=== PATIENT | male | born 1980 | race Caucasian/White ===

== ENCOUNTER 2018-03-28 19:04 | Observation (INO) | payer OTHER ==
[~2018-03-28] VITALS: Ht 182.9 cm; Wt 85.3 kg
[2018-03-28 19:08] VITALS: BP 132/66
[2018-03-28 19:38] LABS: ABSOLUTE BASOPHILS 0.1 thou/uL (0.0-0.2); ABSOLUTE EOSINOPHILS 0.1 thou/uL (0.0-0.7); ABSOLUTE LYMPHOCYTES 1.8 thou/uL (0.8-5.3); ABSOLUTE MONOCYTES 0.5 thou/uL (0.0-1.2); ABSOLUTE NEUTROPHILS 4.9 thou/uL (1.6-8.1); BASOPHILS 0.8 %; EOSINOPHILS 0.8 %; HEMATOCRIT 37.9 % (42.0-52.0); HEMOGLOBIN 13.2 gm/dL (14.0-18.0); LYMPHOCYTES 24.5 %; MCH 29.4 pg (26.0-34.0); MCHC 34.9 g/dL (28.0-37.0); MONOCYTES 6.8 %; MPV 7.9 fl. (7.2-11.1); NUCLEATED RBCS 0 /100WBC; PLATELET COUNT* 234 thou/uL (150-400); POLYS 67.1 %; RBC 4.51 mil/uL (4.50-6.00); RDW-CV 12.8 % (10.5-14.5); WBC 7.4 thou/uL (4.0-11.0)
[2018-03-28 19:47] LABS: CALCIUM 8.4 mg/dL (8.5-10.1); CREATININE 0.8 mg/dL (0.6-1.3); POTASSIUM 3.4 mmol/L (3.5-5.1)
[2018-03-28 19:51] LABS: ALBUMIN 3.5 g/dL (3.4-5.0); TOTAL PROTEIN 6.5 g/dL (6.4-8.2)
[2018-03-28] MEDS ORDERED: AMOXICILLIN 50500 MG PO (20:43)
[2018-03-28] MEDS ORDERED: IBUPROFEN 800800 M1 PO ×2 (20:44→20:45)
[2018-03-28] MEDS ORDERED: NORCO 7.5-3251 EACH PO (20:44)
[2018-03-28 21:41] LABS: URINE BILIRUBIN NEGATIVE (Negative); URINE BLOOD NEGATIVE (Negative); URINE CLARITY CLEAR; URINE COLOR YELLOW; URINE GLUCOSE-RANDOM NEGATIVE (Negative); URINE LEUKOCYTES-REFLEX NEGATIVE (Negative); URINE NITRITE-REFLEX NEGATIVE (Negative); URINE PROTEIN NEGATIVE (Negative); URINE UROBILINOGEN 0.2 E.U./dl (0.2-1.0)
[2018-03-28 21:47] LABS: AMP/METHAMP Negative (Negative); BARBITURATES Negative (Negative); BENZODIAZEPINES Negative (Negative); COCAINE Negative (Negative); METHADONE Negative (Negative); OPIATES POSITIVE (Negative); PCP Negative (Negative); THC Negative (Negative)
[2018-03-28 21:47] LABS: URINE KETONES 3+ (Negative)
[2018-03-28 22:48] LABS: CSF GLUCOSE 56 mg/dl (40-70); CSF PROTEIN 37.6 mg/dl (15-45)
[2018-03-28 23:46] LABS: CSF CLARITY CLEAR; CSF COLOR COLORLESS
[2018-03-28 23:47] LABS: CSF RBC 1 /mm3; CSF WBC 0 /mm3 (0-10); VOLUME 2.5 ml
[2018-03-28 23:50] VITALS: BP 111/64
[2018-03-29] VITALS (10 sets, daily range): BP systolic 106–124; BP diastolic 51–77
[2018-03-29 00:11] LABS: VOLUME 2.5 ml
[2018-03-29 00:12] LABS: CSF COLOR LIGHT PINK
[2018-03-29 00:13] LABS: CSF CLARITY SLIGHTLY HAZY
[2018-03-29 00:14] LABS: CSF RBC 1300 /mm3; CSF WBC 6 /mm3 (0-10)
--- NOTE | 2018-03-29 04:30 | NUR ---
RECEIVED REPORT FROM ED RN. PT TRANSFERRED TO RM 220. PT A&OX2. NOT ORIENTED TO SITUATION & TIME. FORGETFUL. PT ON RA WITH 100% O2 SAT. PT TRACING SR/ST ON TELE. PT ORIENTED TO ROOM & CALL LIGHT. FALL FORM SIGNED. PT COMPLAINED OF HEADACHE WITH PAIN SCALE OF 5/10-DR HARRIS INFORMED [facility] NEW ORDER. PT RESTED WELL BED. HOURLY ROUNDING OBSERVED. CALL LIGHT WITHIN REACH. BED IN LOW POSITION.
--- NOTE | 2018-03-29 08:31 | NUR ---
ASSUMED PT. CARE AND RECEIVED REPORT AT 0730. PT A/OX4, VSS, MONITOR ON TRACING SR. PT. C/O HEADACHE 07/22, OTHERWISE NO COMPLAINTS. DENIES NAUSEA/DIZZINESS/MEMORY LOSS. ORTHOSTATICS COMPLETED AND WNL. FULL ASSESSMENT COMPLETED, REFER TO CHARTING. PT. AT BEDSIDE, CALL LIGHT IN REACH, WILL CONTINUE TO MONITOR.
--- NOTE | 2018-03-29 14:27 | NUR ---
PT. STATES HEADACHE IS BETTER, AROUND 1-2/10 CURRENTLY POST TYLENOL. PT. AMBULATED UNIT WITH THIS RN. TOLERATED WELL AND DENIED DIZZINESS. PT. AND SPOUSE STATED COMFORT IN DISCHARGING HOME. PT. GIVEN DC INSTRUCIONS AND CARENOTES FOR POST LUMBAR PUNCTURE. PT. LEFT VIA WHEELCHAIR TO RETURN HOME IN PERSONAL VEHICLE, ALL BELONGINGS ACCOUNTED FOR.
--- NOTE | 2018-03-29 16:23 | EKG ---
[place] [address] ELECTROCARDIOGRAM REPORT Name: SEEMA WARREN [address]#: [id number] Admission: 03/28/18 Attend Phys: Petra Bell MD Discharge: 03/29/18 Date of : 76 Report #: [id number] THIS REPORT FOR: //name// [facility] ED Test Date: 2018-03-28 Test Time: 19:32:32 Pat Name: SEEMA WARREN Department: Room: [facility] Gender: M [employer] Tender: TONYA : 1980 Requested By: Kristy Manzanares Order Number: [id number] : Daniel Ho Measurements Intervals [employer] Rate: 80 P: 77 ND: 168 QRS: 84 QRSD: 86 T: 58 QT: 396 QTc: 457 Interpretive Statements Sinus rhythm Abnormal R-wave progression, early transition No previous ECG available for comparison Electronically Signed On 03-29-2018 16:22:54 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
== END 2018-03-29 13:45 | disposition home or self-care (01) ==
LOC: M.ERS 19:04 → M.2W 23:06 → M.TBA-ER 23:06 → M.2W 23:06
PROVIDERS: Personal Emergency Response Attendant; ADMIT Family Medicine
DX: R55 Syncope and collapse (principal); T40.2X5A Adverse effect of other opioids, initial encounter; R41.82 Altered mental status, unspecified; E87.6 Hypokalemia; S00.93XA Contusion of unspecified part of head, initial encounter; X58.XXXA Exposure to other specified factors, initial encounter; Y93.89 Activity, other specified; Y92.89 Other specified places as the place of occurrence of the external cause